=== PATIENT | female | born 1970 | race Caucasian/White ===

== ENCOUNTER 2017-10-28 16:49 | Emergency (ER) | payer SELFPAY ==
--- NOTE | 2017-10-28 17:04 | DR.SOBA ---
HPI - Time Seen Time seen: 16:55 - Complaints Chief Complaint Doctors Comments: Patient presented to the ED via EMS from [place] secondary to a history of COPD; she smokes 0.5 to 1 pack per day depending on her mood. 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 Her insurance is from [place] but [place] does not accept [place] insurance. She has been out of certain medications for two to four months. She is 100% on 2L NC. PMH - PMH Past Medical History: COPD ROS - Review of Systems Constitutional: No Symptoms Reported Eyes: No Symptoms Reported ENTM: No Symptoms Reported Respiratoy: No Symptoms Reported, Non-Productive Cough. negative: Productive Cough Cardiovascular: No Symptoms Reported Gastrointestinal/Abdominal: No Symptoms Reported Genitourinary: No Symptoms Reported Neurological: No Symptoms Reported Musculoskeletal: No Symptoms Reported Integumentary: No Symptoms Reported Hematologic/Lymphatic: No Symptoms Reported Endocrine: No Symptoms Reported Psychiatric: No Symptoms Reported All Other Systems: Reviewed and Negative PE - Vital Signs Vitals: Pulse Rate [Left Brachial] 76 Pulse Rate 75 Respiratory Rate 25 Blood Pressure [Right Arm] 164/74 Blood Pressure 219/105 O2 Sat by Pulse Oximetry 98 - General Limitations: No Limitations General Appearance: Alert, In No Apparent Distress - Head Head Exam: Normal Inspection, Atraumatic - Eyes Eye exam: Normal Appearance, PERRL, EOMI - ENT ENT Exam: Normal Exam - Neck Neck Exam: Normal Inspection, Full ROM - Chest Chest Inspection: Normal Inspection - Respiratory Respiratory Exam: Normal Lung Sounds Bilat Respiratory Exam: Bilateral Clear to Auscultation - Cardiovascular Cardiovascular Exam: Regular Rate - Abdominal Exam Abdominal Exam: Normal Inspection, Normal Bowel Sounds, Dimnished Bowel Sounds Abdominal Tenderness: negative: RUQ, RLQ, LUQ, LLQ, Epigastrium, Suprapubic, Diffuse, Mild, Moderate, Severe, Other - Extremities Extremities Exam: Normal Inspection, Full ROM - Back Back Exam: Normal Inspection, Full ROM - Neurologic Neurological Exam: Alert, Oriented X3, CN II-XII Intact - Psychiatric Psychiatric Exam: Normal Affect, Normal Mood, Agitated - Skin Skin Exam: Warm, Dry, Intact Course - Reevaluation 1st: Unchanged - Education/Counseling Educated On: Treatment, Diagnosis, Prognosis, Needs for Follow Up ROR - Labs Reviewed Result Diagrams: 10/28/17 17:25 10/28/17 17:25 Laboratory: WBC 7.3 X10^3/uL (3.6-10.0) 10/28/17 17:25 RBC 4.62 X10^6/uL (3.5-5.4) 10/28/17 17:25 Hgb 15.5 g/dL (12.0-16.0) 10/28/17 17:25 Hct 45.4 % (36.0-47.0) 10/28/17 17:25 MCV 98.4 fL (80.0-100.0) 10/28/17 17:25 MCH 33.7 pg (27.0-34.0) 10/28/17 17:25 MCHC 34.2 g/dL (33.0-35.0) 10/28/17 17:25 RDW 12.8 % (11.6-16.5) 10/28/17 17:25 Plt Count 258 X10^3/uL (150.0-450.0) 10/28/17 17:25 MPV 8.4 fL (7.4-11.0) 10/28/17 17:25 Neut % 53.9 % (42.0-75.0) 10/28/17 17: Lymph % 33.4 % (21.0-51.0) 10/28/17 17:25 [place] % 10.9 % (0.0-13.0) 10/28/17 17:25 Eos % 1.0 % (0.9-2.9) 10/28/17 17:25 Baso % 0.8 % (0.2-1.0) 10/28/17 17:25 Neut # 3.9 x10^3/uL (2.2-4.8) 10/28/17 17:25 Lymph # 2.4 X10^3/uL (1.3-2.9) 10/28/17 17:25 [place] # 0.8 x10^3/uL (0.3-0.8) 10/28/17 17:25 Eos # 0.1 x10^3/uL (0.0-0.2) 10/28/17 17:25 Baso # 0.1 X10^3/uL (0.0-0.1) 10/28/17 17:25 Absolute Nucleated RBC 0.0 /100WBC 10/28/17 17:25 Sodium 140 mmol/L (136-145) 10/28/17 17:25 Corrected Sodium TNP 10/28/17 17:25 Potassium 3.9 mmol/L (3.5-5.1) 10/28/17 17:25 Chloride 102 mmol/L (98-107) 10/28/17 17:25 Carbon Dioxide 29.8 mmol/L (21-32) 10/28/17 17:25 BUN 5 mg/dL (7-18) L 10/28/17 17:25 Creatinine 0.53 mg/dL (0.55-1.02) L 10/28/17 17:25 Est GFR (MDRD) Af Amer > 60 (>60) 10/28/17 17:25 Est GFR (MDRD) Non-Af > 60 (>60) 10/28/17 17:25 Glucose 110 mg/dL (65-99) H 10/28/17 17:25 Calcium 9.0 mg/dL (8.5-10.1) 10/28/17 17:25 - XRAY XRAY Interpreted by: Radiologist (ChestP Findings: Normal heart size with no evidence for pulmonary or pleural abnormality. Diffuse intersitial prominence may be chronic. There is no hilar enlargement or mediastinal deformity. Impression: No acute abnormality demonstrated.) - Diagnosis Discharge Problem: COPD not affecting current episode of care Hypertension Qualifiers: Hypertension type: unspecified Qualified Code(s): I10 - Essential (primary) hypertension - Discharge Plan Condition: Stable - Follow ups/Referrals Follow ups/Referrals: NFD,None [Primary Care Provider] - 3 days - Instructions
[2017-10-28 17:05] VITALS: BMI 20.5
[2017-10-28] MEDS ORDERED: NORMODYNE INJ 20 MG VIAL IVP ONE (17:13)
[2017-10-28] MEDS ORDERED: NORMODYNE INJ 20 MG VIAL ONE (17:18)
--- NOTE | 2017-10-28 17:34 | RAD ---
Examination: AP chest History: SOB Comparison reference: None Findings: Normal heart size with no evidence for pulmonary or pleural abnormality. Diffuse interstiti al prominence may be chronic. There is no hilar enlargement or mediastinal deformity. Impression: No acute abnormality demonstrated. New Reported By:
[2017-10-28 17:35] LABS: BASOPHILS # (AUTO) 0.1 X10^3/uL (0.0-0.1); BASOPHILS % (AUTO) 0.8 % (0.2-1.0); EOSINOPHILS # (AUTO) 0.1 x10^3/uL (0.0-0.2); HEMATOCRIT 45.4 % (36.0-47.0); HEMOGLOBIN 15.5 g/dL (12.0-16.0); LYMPHOCYTES # (AUTO) 2.4 X10^3/uL (1.3-2.9); LYMPHOCYTES % (AUTO) 33.4 % (21.0-51.0); MEAN CORPUSCULAR HEMOGLOBIN 33.7 pg (27.0-34.0); MEAN CORPUSCULAR HGB CONC 34.2 g/dL (33.0-35.0); MEAN CORPUSCULAR VOLUME 98.4 fL (80.0-100.0); MEAN PLATELET VOLUME 8.4 fL (7.4-11.0); MONOCYTES # (AUTO) 0.8 x10^3/uL (0.3-0.8); MONOCYTES % (AUTO) 10.9 % (0.0-13.0); NEUTROPHILS # (AUTO) 3.9 x10^3/uL (2.2-4.8); NEUTROPHILS % (AUTO) 53.9 % (42.0-75.0); PLATELET COUNT 258 X10^3/uL (150.0-450.0); RED BLOOD COUNT 4.62 X10^6/uL (3.5-5.4); RED CELL DISTRIBUTION WIDTH 12.8 % (11.6-16.5); WHITE BLOOD COUNT 7.3 X10^3/uL (3.6-10.0)
[2017-10-28 17:38] LABS: BLOOD UREA NITROGEN 5 mg/dL (7-18); CARBON DIOXIDE 29.8 mmol/L (21-32); CHLORIDE 102 mmol/L (98-107); CREATININE 0.53 mg/dL (0.55-1.02); SODIUM 140 mmol/L (136-145); eGFR BLACK RACES > 60 (>60); eGFR NON BLACK RACES > 60 (>60)
[2017-10-28 18:07] VITALS: BP 164/74
[2017-10-28] MEDS ORDERED: DUONEB 0.5 MG/3 MG ONE (18:48)
[2017-10-28] MEDS ORDERED: DUONEB 0.5 MG/3 MG NEB ONE (18:48)
== END 2017-10-28 18:50 | disposition home or self-care (01) ==
LOC: ER 17:00
DX: J44.9 Chronic obstructive pulmonary disease, unspecified (principal); I10 Essential (primary) hypertension
CPT/HCPCS: 36415; 71010; 80048; 85025; 96365; 96374; 99283; J3490; J7620